=== PATIENT | female | born 1995 | race Hispanic/Latino ===

== ENCOUNTER → 2024-12-26 | Emergency (ER) | payer SELFPAY ==
[~2024-12-26] VITALS: Ht 172.7 cm; Wt 127.0 kg
[2024-12-26 11:23] VITALS: PULSE 83; RESP 18; TEMP 98.1
[2024-12-26 14:14] VITALS: BP 124/78; PULSE 67; RESP 18; TEMP 98.1; O2SAT 100
== END | disposition left against medical advice (07) ==
LOC: ER 13:15
DX: M25.532 Pain in left wrist (principal)
CPT/HCPCS: 93005; 99283